=== PATIENT | female | born 2000 | race African-American/Black ===

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

== ENCOUNTER 2022-03-12 08:00 | Outpatient (CLI) | payer OTHER ==
[2022-03-12 22:20] LABS: BACTERIAL VAGINOSIS DNA NEGATIVE (NEGATIVE); CANDIDA GLABRATA DNA NEGATIVE (NEGATIVE); CANDIDA GROUP DNA NEGATIVE (NEGATIVE); CANDIDA KRUSEI DNA NEGATIVE (NEGATIVE); TRICHOMONAS VAGINALIS DNA NEGATIVE (NEGATIVE)
[2022-03-12 23:11] LABS: CHLAMYDIA TRACHOMATIS DNA NEGATIVE (NEGATIVE); NEISSERIA GONORRHOEAE DNA NEGATIVE (NEGATIVE)
== END 2022-03-12 23:59 | disposition home or self-care (01) ==
LOC: LAB.N 08:00
PROVIDERS: ATTEND Nurse Practitioner
DX: L29.8 Other pruritus (principal)
CPT/HCPCS: 81514; 87491; 87591; 87661

== ENCOUNTER 2022-06-01 17:32 | Emergency (ER) | payer OTHER ==
[2022-06-01 17:44] VITALS: BP 118/61
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
--- OUTSIDE RECORDS SUMMARY | 2022-06-01 18:11 | EXTERNAL MEDICAL SUMMARY RPT | Continuity of Care Document ---
:2000 Author Organization [facility] Address [address] [place] [address] Phone Care Team Providers Name Role Phone Unavailable Unavailable Unavailable Melody Warp Tying Machine Knotter Enp, Sera Unavailable Unavailable Menacho Patient Registrar, Wendy Unavailable Unavail able Menacho Patient Registrar, Wendy Unavailable Unavail able Allergies No information. Encounters No information. Functional Status No information. Immunizations No information. Medications date description facility 2022-03-12 00:00 amoxicillin All 2022-03-12 00:00 amoxicillin All 2022-03-12 00:00 amoxicillin All 2022-03-12 00:00 amoxicillin All 2022-03-12 00:00 amoxicillin All 2022-03-12 00:00 amoxicillin All 2022-03-12 00:00 amoxicillin All 2022-03-12 00:00 amoxicillin All 2022-03-12 00:00 amoxicillin All 2022-03-12 00:00 amoxicillin All 2022-03-12 00:00 amoxicillin All 2022-03-12 00:00 amoxicillin All Problems No information. Procedures date description facility 2022-03-12 00:00 Visit Code Hold All 2022-03-12 00:00 Visit Code Hold All 2022-03-12 00:00 Visit Code Hold All 2022-03-12 00:00 POC URINALYSIS DIP All 2022-03-12 00:00 POC URINALYSIS DIP All 2022-03-12 00:00 POC URINALYSIS DIP All 2022-03-12 00:00 POC HCG All 2022-03-12 00:00 POC HCG All 2022-03-12 00:00 POC HCG All 2022-03-12 00:00 CHLAM, NEISSERIA, TRICH DNA All 2022-03-12 00:00 CHLAM, NEISSERIA, TRICH DNA All 2022-03-12 00:00 CHLAM, NEISSERIA, TRICH DNA All 2022-03-12 00:00 BACTERIAL VAGINOSIS/VAGINITIS All 2022-03-12 00:00 BACTERIAL VAGINOSIS/VAGINITIS All 2022-03-12 00:00 BACTERIAL VAGINOSIS/VAGINITIS All Results/Labs test date author facility value unit interpret ation Result panel 1 (unknown) (no date) (unknown) All (no value) (units unknown ) (unknown) Result panel 2 (unknown) (no date) (unknown) All (no value) (units unknown ) (unknown) Result panel 3 (unknown) (no date) (unknown) All (no value) (units unknown ) (unknown) Result panel 4 (unknown) (no date) (unknown) All (no value) (units unknown ) (unknown) Result panel 5 (unknown) (no date) (unknown) All (no value) (units unknown ) (unknown) Result panel 6 (unknown) (no date) (unknown) All (no value) (units unknown ) (unknown) Result panel 7 (unknown) (no date) (unknown) All (no value) (units unknown ) (unknown) Result panel 8 (unknown) (no date) (unknown) All (no value) (units unknown ) (unknown) Result panel 9 (unknown) (no date) (unknown) All (no value) (units unknown ) (unknown) Result panel 10 (unknown) (no date) (unknown) All (no value) (units unknown ) (unknown) Result panel 11 (unknown) (no date) (unknown) All (no value) (units unknown ) (unknown) Result panel 12 (unknown) (no date) (unknown) All (no value) (units unknown ) (unknown) Result panel 13 (unknown) (no date) (unknown) All (no value) (units unknown ) (unknown) Result panel 14 (unknown) (no date) (unknown) All (no value) (units unknown ) (unknown) Result panel 15 (unknown) (no date) (unknown) All (no value) (units unknown ) (unknown) Result panel 16 (unknown) (no date) (unknown) All (no value) (units unknown ) (unknown) Result panel 17 (unknown) (no date) (unknown) All (no value) (units unknown ) (unknown) Result panel 18 (unknown) (no date) (unknown) All (no value) (units unknown ) (unknown) Result panel 19 (unknown) (no date) (unknown) All (no value) (units unknown ) (unknown) Result panel 20 (unknown) (no date) (unknown) All (no value) (units unknown ) (unknown) Result panel 21 (unknown) (no date) (unknown) All (no value) (units unknown ) (unknown) Result panel 22 (unknown) (no date) (unknown) All (no value) (units unknown ) (unknown) Result panel 23 (unknown) (no date) (unknown) All (no value) (units unknown ) (unknown) Result panel 24 (unknown) (no date) (unknown) All (no value) (units unknown ) (unknown) Result panel 25 (unknown) (no date) (unknown) All (no value) (units unknown ) (unknown) Result panel 26 (unknown) (no date) (unknown) All (no value) (units unknown ) (unknown) Result panel 27 (unknown) (no date) (unknown) All (no value) (units unknown ) (unknown) Result panel 28 (unknown) (no date) (unknown) All (no value) (units unknown ) (unknown) Result panel 29 (unknown) (no date) (unknown) All (no value) (units unknown ) (unknown) Result panel 30 (unknown) (no date) (unknown) All (no value) (units unknown ) (unknown) Result panel 31 (unknown) (no date) (unknown) All (no value) (units unknown ) (unknown) Result panel 32 (unknown) (no date) (unknown) All (no value) (units unknown ) (unknown) Result panel 33 (unknown) (no date) (unknown) All (no value) (units unknown ) (unknown) Result panel 34 (unknown) (no date) (unknown) All (no value) (units unknown ) (unknown) Result panel 35 (unknown) (no date) (unknown) All (no value) (units unknown ) (unknown) Result panel 36 (unknown) (no date) (unknown) All (no value) (units unknown ) (unknown) Result panel 37 (unknown) (no date) (unknown) All (no value) (units unknown ) (unknown) Result panel 38 (unknown) (no date) (unknown) All (no value) (units unknown ) (unknown) Result panel 39 (unknown) (no date) (unknown) All (no value) (units unknown ) (unknown) Result panel 40 (unknown) (no date) (unknown) All (no value) (units unknown ) (unknown) Result panel 41 (unknown) (no date) (unknown) All (no value) (units unknown ) (unknown) Result panel 42 (unknown) (no date) (unknown) All (no value) (units unknown ) (unknown) Result panel 43 (unknown) (no date) (unknown) All (no value) (units unknown ) (unknown) Result panel 44 (unknown) (no date) (unknown) All (no value) (units unknown ) (unknown) Result panel 45 (unknown) (no date) (unknown) All (no value) (units unknown ) (unknown) Result panel 46 (unknown) (no date) (unknown) All (no value) (units unknown ) (unknown) Result panel 47 (unknown) (no date) (unknown) All (no value) (units unknown ) (unknown) Result panel 48 (unknown) (no date) (unknown) All (no value) (units unknown ) (unknown) Result panel 49 (unknown) (no date) (unknown) All (no value) (units unknown ) (unknown) Result panel 50 (unknown) (no date) (unknown) All (no value) (units unknown ) (unknown) Result panel 51 (unknown) (no date) (unknown) All (no value) (units unknown ) (unknown) Result panel 52 (unknown) (no date) (unknown) All (no value) (units unknown ) (unknown) Result panel 53 (unknown) (no date) (unknown) All (no value) (units unknown ) (unknown) Result panel 54 (unknown) (no date) (unknown) All (no value) (units unknown ) (unknown) Result panel 55 (unknown) (no date) (unknown) All (no value) (units unknown ) (unknown) Result panel 56 (unknown) (no date) (unknown) All (no value) (units unknown ) (unknown) Result panel 57 (unknown) (no date) (unknown) All (no value) (units unknown ) (unknown) Result panel 58 (unknown) (no date) (unknown) All (no value) (units unknown ) (unknown) Result panel 59 (unknown) (no date) (unknown) All (no value) (units unknown ) (unknown) Result panel 60 (unknown) (no date) (unknown) All (no value) (units unknown ) (unknown) Result panel 61 (unknown) (no date) (unknown) All (no value) (units unknown ) (unknown) Result panel 62 (unknown) (no date) (unknown) All (no value) (units unknown ) (unknown) Result panel 63 (unknown) (no date) (unknown) All (no value) (units unknown ) (unknown) Result panel 64 (unknown) (no date) (unknown) All (no value) (units unknown ) (unknown) Result panel 65 (unknown) (no date) (unknown) All (no value) (units unknown ) (unknown) Result panel 66 (unknown) (no date) (unknown) All (no value) (units unknown ) (unknown) Result panel 67 (unknown) (no date) (unknown) All (no value) (units unknown ) (unknown) Result panel 68 (unknown) (no date) (unknown) All (no value) (units unknown ) (unknown) Result panel 69 (unknown) (no date) (unknown) All (no value) (units unknown ) (unknown) Result panel 70 (unknown) (no date) (unknown) All (no value) (units unknown ) (unknown) Result panel 71 (unknown) (no date) (unknown) All (no value) (units unknown ) (unknown) Result panel 72 (unknown) (no date) (unknown) All (no value) (units unknown ) (unknown) Result panel 73 (unknown) (no date) (unknown) All (no value) (units unknown ) (unknown) Result panel 74 (unknown) (no date) (unknown) All (no value) (units unknown ) (unknown) Result panel 75 (unknown) (no date) (unknown) All (no value) (units unknown ) (unknown) Result panel 76 (unknown) (no date) (unknown) All (no value) (units unknown ) (unknown) Result panel 77 (unknown) (no date) (unknown) All (no value) (units unknown ) (unknown) Result panel 78 (unknown) (no date) (unknown) All (no value) (units unknown ) (unknown) Result panel 79 (unknown) (no date) (unknown) All (no value) (units unknown ) (unknown) Result panel 80 (unknown) (no date) (unknown) All (no value) (units unknown ) (unknown) Result panel 81 (unknown) (no date) (unknown) All (no value) (units unknown ) (unknown) Social History date description facility 2022-03-12 00:00 Unknown if ever smoked All 2022-03-13 00:00 Unknown if ever smoked All 2022-03-13 00:00 Unknown if ever smoked All 2022-03-13 00:00 Unknown if ever smoked All Vital Signs date measurement value units 2022-03-12 00:00 BMI 23.76 kg/m2 2022-03-12 00:00 BP_diastolic 80 mmHg 2022-03-12 00:00 BP_systolic 124 mmHg 2022-03-12 00:00 heart_rate 84 /min 2022-03-12 00:00 height_metric 171.45 cm 2022-03-12 00:00 height_standard 67.5 in 2022-03-12 00:00 respiration_rate 16 /min 2022-03-12 00:00 temperature_metric 36.72 C 2022-03-12 00:00 temperature_standard 98.1 F 2022-03-12 00:00 weight_metric 69.58 kg 2022-03-12 00:00 weight_standard 153.4 lb
== END 2022-06-01 18:06 | disposition home or self-care (01) ==
LOC: ED 17:32
DX: T52.8X1A Toxic effect of other organic solvents, accidental (unintentional), initial encounter (principal); L24.2 Irritant contact dermatitis due to solvents; Y92.139 Unspecified place military base as the place of occurrence of the external cause
CPT/HCPCS: 99281; 99283